=== PATIENT | male | born 1980 | race Hispanic/Latino ===

== ENCOUNTER 2018-01-09 10:02 | Inpatient (IN) | payer OTHER, BC ==
[~2018-01-09] VITALS: Ht 170.2 cm; Wt 78.9 kg
[~2018-01-09 10:02] MED LIST: ACETAMINOPHEN500 M6 PO; ASPIR-LOW81 MG PO; ATORVASTATIN CA40 MG PO; METOPROLOL SUCC25 MG PO; NITROSTAT0.4 MG SL; PLAVIX75 MG PO
[2018-01-09 10:19] LABS: BASOPHIL (%) 0.4 % (0-1); EOSINOPHIL (%) 1.1 % (0-5); EOSINOPHIL COUNT 0.1 K/uL (0-0.3); HEMATOCRIT 45.6 % (38.0-50.0); HEMOGLOBIN 15.5 G/DL (12.5-16.6); IMMATURE GRANULOCYTE (%) 0.4 % (0.0-0.7); LYMPHOCYTE (%) 48.8 % (15-42); LYMPHOCYTE COUNT 2.3 K/uL (1.0-2.8); MCV 88.4 FL (86-99); MONOCYTE (%) 9.7 % (3-12); MONOCYTE COUNT 0.5 K/uL (0-0.8); NEUTROPHIL (%) 39.6 % (45-76); NEUTROPHIL COUNT 1.8 K/uL (1.8-6.4); PLATELET COUNT 194 K/uL (156-360); RBC DIS.WIDTH-CV 13.2 % (11.8-14.6); RBC DIS.WIDTH-SD 42.7 % (39-53); RED BLOOD COUNT 5.16 M/uL (4.00-5.50); WHITE BLOOD COUNT 4.6 K/uL (4.1-10.2)
[2018-01-09 10:27] LABS: AMYLASE 58 IU/L (1-118); CHLORIDE 105 mEq/L (99-109); POTASSIUM 4.7 mEq/L (3.7-5.4); SODIUM 140 mEq/L (136-147)
[2018-01-09 10:29] LABS: GLUCOSE 138 mg/dL (70-99)
[2018-01-09 10:32] LABS: CREATININE 1.4 mg/dL (0.6-1.3); GFR ESTIMATE (CALCULATED) > 59 mL/min/ (58.99-99999); SERUM ETHYL ALCOHOL < 10 mg/dL
[2018-01-09 10:33] LABS: UREA NITROGEN (BUN) 20 mg/dL (9-23)
[2018-01-09 10:35] LABS: LIPASE 24 U/L (1.0-51.0)
[2018-01-09] MEDS ORDERED: CETIRIZINE HCL10 M2 PO (12:27)
[2018-01-09 13:51] LABS: APPEARANCE CLEAR ((CLEAR)); BILIRUBIN NEGATIVE; BLOOD NEGATIVE; COLOR STRAW ((YELLOW)); GLUCOSE (STRIP) NEGATIVE; KETONES NEGATIVE; LEUKOCYTES NEGATIVE; NITRITE NEGATIVE; PROTEIN (STRIP) NEGATIVE; SPECIFIC GRAVITY 1.014 (1.000-1.030); UCUL ADDED? NO; UROBILINOGEN 0.2 MG/DL (0.2-1.0)
[2018-01-09 14:07] LABS: AMPHETAMINE NEGATIVE (500 ng/mL); BARBITURATES NEGATIVE (200 ng/mL); BENZODIAZEPINES NEGATIVE (150 ng/mL); BUPRENORPHINE NEGATIVE (10 ng/mL); COCAINE NEGATIVE (150 ng/mL); METHADONE NEGATIVE (200 ng/mL); METHAMPHETAMINE NEGATIVE (500 ng/mL); OPIATES (MORPHINE) NEGATIVE (100 ng/mL); OXYCODONE NEGATIVE (100 ng/mL); PHENCYCLIDINE NEGATIVE (25 ng/mL); PROPOXYPHENE NEGATIVE (300 ng/mL); THC CANNABINOIDS NEGATIVE (50 ng/mL); TRICYCLIC ANTIDEPRESSANTS NEGATIVE (300 ng/mL)
[2018-01-09 18:49] VITALS: BP 143/85
[2018-01-09 23:43] VITALS: BP 131/80
[2018-01-10 04:39] VITALS: BP 133/85
[2018-01-10 06:20] LABS: HEMATOCRIT 43.1 % (38.0-50.0); HEMOGLOBIN 14.3 G/DL (12.5-16.6); MCV 87.2 FL (86-99)
[2018-01-10 06:50] LABS: CHLORIDE 99 MEQ/L (99-109); CREATININE 1.1 MG/DL (0.6-1.3); GFR ESTIMATE (CALCULATED) > 59 mL/min/ (58.99-99999); GLUCOSE 134 mg/dL (70-99); POTASSIUM 4.6 MEQ/L (3.7-5.4); SODIUM 135 MEQ/L (136-147); UREA NITROGEN (BUN) 11 mg/dL (9-23)
[2018-01-10 07:28] VITALS: BP 153/73
[2018-01-10 10:18] VITALS: BP 134/77
[2018-01-10 15:50] VITALS: BP 118/73
[2018-01-10 23:53] VITALS: BP 137/75
[2018-01-11 07:33] LABS: HEMATOCRIT 41.6 % (38.0-50.0); HEMOGLOBIN 13.6 G/DL (12.5-16.6); MCV 89.5 FL (86-99)
[2018-01-11 07:59] VITALS: BP 133/86
[2018-01-11] MEDS ORDERED: BENADRYL25 MG PO (10:12)
[2018-01-11] MEDS ORDERED: SENNA PLUS TAB1 EACH PO (10:15)
[2018-01-11] MEDS ORDERED: ENDOCET 5-3251 EACH PO (10:16)
[2018-01-11] MEDS ORDERED: ASPIRIN EC325 MG PO (10:16)
== END 2018-01-11 12:35 | disposition home or self-care (01) | DRG 512 ==
LOC: TRA 10:02 → SDC 14:20 → TRA 14:20 → ENRESERV 16:45 → 3EAST 16:45 → 2SOUTH 16:45 → ENRESERV 17:11 → 3EAST 18:15
PROVIDERS: Emergency Medicine; Orthopaedic Surgery Sports Medicine
DX: S52.252B Displaced comminuted fracture of shaft of ulna, left arm, initial encounter for open fracture type I or II (principal); S52.352B Displaced comminuted fracture of shaft of radius, left arm, initial encounter for open fracture type I or II; I10 Essential (primary) hypertension; I25.10 Atherosclerotic heart disease of native coronary artery without angina pectoris; E78.5 Hyperlipidemia, unspecified; V29.9XXA Motorcycle rider (driver) (passenger) injured in unspecified traffic accident, initial encounter; Y93.89 Activity, other specified; Y92.488 Other paved roadways as the place of occurrence of the external cause; Z95.5 Presence of coronary angioplasty implant and graft; Z79.82 Long term (current) use of aspirin
CPT/HCPCS: 73090; 76000; 80048; 81003; 82150; 82306; 83690; 85014; 85018; 85025; 86850; 86900; 86901; 99281; 99285; C1713; G0480; J0131; J0330; J0690; J1100; J1170; J2405; J3010; S0020